=== PATIENT | female | born 1955 | race Caucasian/White ===

== ENCOUNTER 2020-02-23 16:12 | Inpatient (IN) | payer OTHER ==
[~2020-02-23] VITALS: Ht 165.1 cm; Wt 65.8 kg
[2020-02-23 16:21] VITALS: Ht 165.1 cm; Wt 65.8 kg
--- NOTE | 2020-02-23 16:22 | NUR ---
DR DONALDSON AT THE BEDSIDE FOR MSE TO PT
--- NOTE | 2020-02-23 16:25 | NUR ---
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 PER MEDICS
--- NOTE | 2020-02-23 16:25 | NUR ---
PT BIB [facility] FROM HOME S/P WITNESSED "TONIC CLONIC LIKE" SEIZURE BY FAMILY WHO HELPED HER TO THE GROUND. MEDICS REPORTED 2 SEZURES AFTER EMS ARRIVED TO THE HOUSE, 2.5MG VERSED IM GIVEN BY EMS GENERATOR MAN. MEDICS REPORTED ON WAY TO [facility] THAT PT HAD ANOTHER TONIC CLONIC SEIZURE AND 2.5MG VERSED GIVEN IM. PT HAS HISTORY OF SEIZURES AND MEDICA REPORTED HER MEDICATION WAS CHANGED A WEEK AGO, UNKNOWN WHAT THE NAME OF THE MEDICATION. UPON ARRIVAL PT NOTED TWITCHING LIKE SEIZURE ACTICITY, PT UNABLE TO VERBALIZE NEEDS OR FOLLOW COMMANDS, HORIZONTAL NYSTAGMUS NOTED, PT DOES NOT RESPOND TO HER NAME, GCS 1,1,1, LUNGS CTA, RESP E/U, SKIN NOTED INTACT PINK WARM AND DRY. PT ON NONREBREATHER AT 15L GENERATOR MAN. SIEZURE PRECUATIONS IN PLACE, PT GOWNED AND PLACE DON FULL CM, NSR NOTED.
[2020-02-23 16:45] LABS: microscopic required? NO
--- NOTE | 2020-02-23 16:55 | NUR ---
CHAPARRONED PT TO CT ON A MONITOR, VSS, WHILE IN CT PT HAD TONIC CLONIC SEIZURE LIKE ACTIVITY, PT GIVEN 1MG ATIVAN PER DR DONALDSON VERBAL ORDER IVP, PT IMPROVED AND ABLE TO CONTINUE TO CT SCAN.
--- NOTE | 2020-02-23 16:57 | NUR ---
SPOKE TO PT DAUGHTER, SUDHA, ON PT ACCOUNT, , PER DAUGHTER PT " WAS ON DEPAKOTE AND HER MEDICATION WAS CHANGED TO KEPPRA 200MG" PO BID A WEEK AGO. PER DAUGHTER PT WAS TAKING MEDICATION PRESCRIBED.
[2020-02-23 17:07] LABS: CALCIUM 8.5 mg/dL (8.5-10.1); CARBON DIOXIDE 25.9 mmol/L (21-32); CHLORIDE SERUM 108 mmol/L (98-107); CREATININE SERUM 0.7 mg/dL (0.6-1.0); GFR1 > 60 mL/min; GLUCOSE SERUM 111 mg/dL (74-106); POTASSIUM SERUM 4.1 mmol/L (3.5-5.1); SODIUM SERUM 144 mmol/L (136-145)
--- NOTE | 2020-02-23 17:10 | NUR ---
PT IN NOTED WITH CONTINUAL SEIZURE LIKE ACTIVITY, DR DONALDSON AT THE BEDSIDE FOR REEVALUATION. PER VERBAL ORDER GIVE 1MG ATIVAN IVP AND PREPARE TO INTUBATE PT.
[2020-02-23 17:11] LABS: ALBUMIN 3.6 g/dL (3.4-5.0); ALKALINE PHOSPHATASE 46 U/L (46-116); ALT/SGPT 27 U/L (14-59); AST/SGOT 23 U/L (15-37); BILIRUBIN TOTAL 0.2 mg/dL (0.20-1.00); MAGNESIUM 2.1 mg/dL (1.8-2.4); TOTAL PROTEIN, SERUM 6.6 g/dL (6.4-8.2)
[2020-02-23 17:12] LABS: BASOPHIL % 0.5 % (0.2-1.3); PLATELET COUNT 154 x10^3mcL (179-408); RED CELL DISTRIBUTION WIDTH 13.8 % (12.3-17.7)
--- NOTE | 2020-02-23 17:20 | NUR ---
DR DONALDSON, 2 RTS, EMT GINNY, EMT YANIQUE, RN MICK AND MYSELF AT THE BEDSIDE. PT TO BE INTUBATED PER DR DONALDSON VERBAL ORDER, VERSED 4MG IVP ADMINISTERED BY MICK DARNELL PER DR DONALDSON.
--- NOTE | 2020-02-23 17:21 | NUR ---
PER DR DONALDSON VERBAL ORDER ETOMIDATE 10MG GIVEN IVP TO L HAND BY MICK DARNELL
[2020-02-23 17:22] VITALS: BP 141/81; BP 142/79
--- NOTE | 2020-02-23 17:22 | NUR ---
PT INTUBATED BY DR DONALDSON, CONFIRMED WITH COLOR CHANGE TO GOLD, SYMMETRICAL CHEST RISE AND FALL NOTED,
[2020-02-23 17:28] LABS: UA SPECIFIC GRAVITY >=1.030 (1.005-1.035); urine erythrocyte NEGATIVE (NEGATIVE)
--- NOTE | 2020-02-23 17:34 | NUR ---
UIRINARY EDWARDS PLACED BY [facility] DARNELL,
--- NOTE | 2020-02-23 17:35 | NUR ---
PT PLACED IN VENTILATOR, NO SIEZURE ACTIVITY NOTED AT THIS TIME.
--- NOTE | 2020-02-23 17:45 | NUR ---
PROPOFOL IV DRIP INITIATED AT 10MCG/KG/MIN, GOAL TO ACHIEVE RASS OF 4,
--- NOTE | 2020-02-23 17:48 | NUR ---
OG TUBE PLACED BY YOU RN, CONFIRMED BY CONFIRMATION BY[facility] ASCULTATION BY 2 RNS, YOU AND MYSELF XRAY AT THE BEDSIDE,
--- NOTE | 2020-02-23 17:50 | NUR ---
PROPOFOL TITRATED TO 20MCG/MIN/KG, TO ACHIEVE RASS OF 4, PT MOVING LOWER EXTREMITITES.
--- NOTE | 2020-02-23 17:55 | NUR ---
OG AND ET TUBE PLACEMENT CONFIRMED BY DR DONALDSON. PT PLACED ON LOW INTERMITTENT SUCTION AT 80MM HG
--- NOTE | 2020-02-23 17:56 | NUR ---
TRITRATED PROPFOL DRIP TO 40MCG/KG/MIN, PT NOTED MOVING EXTREMITIES, AND MOVING HEAD WHEN POSITIONING FOR IV INSERTION,
--- NOTE | 2020-02-23 18:10 | NUR ---
PROPOFOL TITRATED TO 50MCG/MIN/KG RSS OF 4 ACHIEVED, PT NOTED NO DISTRESS, RESP E/U, SYMMETRICAL CHEST RISE AND FALL NOTED, VSS, PT IN VIEW OF THE NURSE STATION, WILL CONT TO MONITOR.
--- NOTE | 2020-02-23 18:40 | NUR ---
PROPFOL INFUSING TO L EJ AT 50MCG/KG/MIN, KEPPRA INFUSING TO L HAND IV @ 430ML/HR.
--- NOTE | 2020-02-23 18:42 | NUR ---
PT NOTED WITH TWITCHING SEIZURE LIKE ACITIVITY, PT GIVEN 2MG IVP ATIVAN PER DR DONALDSON ORDER, SEE EMAR.
--- NOTE | 2020-02-23 19:20 | NUR ---
REPORT GIVEN TO YOU DARNELL, FOR CONTINUITY OF CARE.
--- NOTE | 2020-02-23 19:30 | NUR ---
PT HOB RAISED TO >30 DEGREES. PROPOFOL DRIP REDUCED TO 40/MCG/KG/MIN D/T NO RESPONSE NOTED WITH AUDITORY OR PHYSICAL STIMULI. NOTED PT RESTRAINED WITH SOFT RETRAINTS ON BILATERAL UPPER EXTREMITIES. +PMSC.
--- NOTE | 2020-02-23 19:55 | NUR ---
SPOKE TO NANCY, PT'S DAUGHTER, GAVE HER AN UPDATE ON HER MOM, INFORMED SHE IS THE POINT OF CONTACT AND WE WILL BE UPDATING HER ONLY. NANCY VERBALIZED UNDERSTANDING.
--- NOTE | 2020-02-23 20:15 | NUR ---
PT TOLERATING PROPOFOL WELL AT 40MCG/KG/MIN. RSS TARGET SCORE OF 4 ACHIEVED. BRISK RESPONSE TO AUDITORY STIMULI
[2020-02-23 21:25] VITALS: BP 121/60
--- NOTE | 2020-02-23 21:58 | NUR ---
PT IS SEDATED AND IN CYNTHIA SOFT WRIST RESTRAINTS, PT ON FULL CM WITH NSR NOTED. PT DOES NOT APPEAR TO BE IN ACUTE DISTRESS AT THIS TIME WILL CONT TO MONITOR.
--- NOTE | 2020-02-23 22:20 | NUR ---
NOTED WITH MILD NONSPECIFIC SEIZURE LIKE MOTIONS FOR APPROX 5MINS. PT MEDICATED WITH PRN ATIVAN PER EMAR.
--- NOTE | 2020-02-23 23:20 | NUR ---
REPORT RECEIVED FROM FERNANDO DARNELL. PT NOTED LAYING ON GURNEY. PT REMAINS INTUBATED. RESP EVEN AND UNLABORED ON VENTILATOR. FULL CM AND [address] WILL CONTINUE TO MONITOR.
--- NOTE | 2020-02-24 00:12 | NUR ---
PT REMAINS INTUBATED AND ON VENTILATOR AT THIS TIME. PT NOTED RESTING ON GURNEY IN NAD. RESP APPEAR EVEN AND UNLABORED ON VENT. FULL CM AND [address] IV RUNNING WITH NO COMPLICATIONS. PT REMAINS IN BILATERAL SOFT WRIST RESTRAINTS FOR SAFETY. BED IN LOWEST POSITION. WILL CONTINUE TO MONITOR.
--- NOTE | 2020-02-24 01:42 | NUR ---
PT REMAINS ON VENT AND IS NOTED TOLERATING WELL, RESP APPEAR EVEN AND UNLABORED. FULL CM AND [address] BED IN LOWEST POSITON. PT REMAINS IN BUE SOFT RESTRAINTS FOR SAFETY. WILL CONTINUE TO MONITOR
--- NOTE | 2020-02-24 03:00 | NUR ---
PTS BP NOTED 100/53 MAP 72, PT RESTING ON GURNEY. PROPOFOL DECREASED TO 35 MCG/KG/MIN. FULL CM AND [address] PT REMAINS INTUBATED. WILL CONTINUE TO MONITOR.
[2020-02-24 03:51] VITALS: BP 115/61
--- NOTE | 2020-02-24 04:23 | NUR ---
PT RESTING ON GURNEY WITH EYES CLOSED. PT REMAINS INTUBATED AND ON VENTILATOR, RESP EVEN AND UNLABORED. FULL CM AND [address] BUE SOFT RESTRAINTS REMAIN IN PLACE. IV RUNNING WITH NO COMPLICATIONS. WILL CONTINUE TO MONITOR.
--- NOTE | 2020-02-24 05:27 | NUR ---
PT NOTED RESTING ON GURNEY WITH EYES CLOSED IN NAD. PT RESP EVEN AND UNLABORED ON VENTILATOR. FULL CM AND [address] BED IN LOWEST POSITION. ABLE TO VISUALIZE PT FROM NURSING STATION. PT REMAINS ON PROPOFOL AT 35 MCG/KG/MIN WITH NO COMPLICATIONS. WILL CONTINUE TO MONITOR.
[2020-02-24 06:03] LABS: BASOPHIL % 0.4 % (0.2-1.3); RED CELL DISTRIBUTION WIDTH 13.9 % (12.3-17.7)
[2020-02-24 06:06] LABS: PLATELET COUNT 79 x10^3mcL (179-408)
--- NOTE | 2020-02-24 06:18 | NUR ---
PT RESTING ON GURNEY WITH EYES CLOSED. PT REMAINS INTUBATED VIA ET TUBE. PT TOLERATING VENTILATOR WELL. PT REMAINS ON FULL CM AND 02 MONITOR. PT REMAINS ON BUE SOFT RESTRAINTS FOR SAFETY. IV RUNNING WITH NO COMPLICATIONS. BED IN LOWEST POSITION. ABLE TO VISUALIZE PT FROM NURSING STATION. WILL CONTINUE TO MONITOR.
[2020-02-24 06:20] LABS: ALKALINE PHOSPHATASE 37 U/L (46-116); ALT/SGPT 21 U/L (14-59); AST/SGOT 25 U/L (15-37); BILIRUBIN TOTAL 0.5 mg/dL (0.20-1.00); CALCIUM 8.1 mg/dL (8.5-10.1); CARBON DIOXIDE 26.3 mmol/L (21-32); CHLORIDE SERUM 105 mmol/L (98-107); CREATININE SERUM 0.4 mg/dL (0.6-1.0); GFR1 > 60 mL/min; GLUCOSE SERUM 98 mg/dL (74-106); MAGNESIUM 1.8 mg/dL (1.8-2.4); POTASSIUM SERUM 3.7 mmol/L (3.5-5.1); SODIUM SERUM 138 mmol/L (136-145)
[2020-02-24 06:22] LABS: ALBUMIN 2.9 g/dL (3.4-5.0); TOTAL PROTEIN, SERUM 5.9 g/dL (6.4-8.2)
--- NOTE | 2020-02-24 07:45 | NUR ---
REPORT GIVEN TO EDUARDO LEW RN. EDUARDO DARNELL TO ASSUME CARE OF PT AT THIS TIME.
[2020-02-24 10:19] VITALS: BP 110/57
--- NOTE | 2020-02-24 14:38 | NUR ---
PT RESTING IN BED WITH RASS -1. PROPOFOL DRIP STOPPED AT 1000 PER MD INSTRUCTIONS WITH PLAN TO EXTUBATE ONCE PATIENT BECOMES MORE AWAKE. PT CURRENTLY ON VENT WITH FIO2 @ 36% SPO2 @ 99%. PT FOLLOWS COMMANDS AND NODS APPROPIATELY. PT IN NAD ON GURNEY. WILL CONTINUE TO MONITOR.
[2020-02-24 15:14] VITALS: BP 126/64
--- NOTE | 2020-02-24 17:00 | NUR ---
PT EXTUBATED AND PLACED ON 2 L/MIN O2 VIA NC WITH SPO2 98% OGT REMOVED. PT ABLE TO FOLLOW COMMANDS, NOD HEAD APPROPRIATELY AND OPEN EYES SPOTANEOUSLY. ABLE TO MOVE EXTREMITIES BUT HAS WEAKENESS X4. NO C/O PAIN. BREATHING UNLABORED AND EVEN WITHOUT COUGH. ALL LUNG SOUNDS CLEAR TO AUSCULTATION. CALL LIGHT WITHIN REACH AND REORIENTED PT TO SURROUNDINGS. INSTRUCTED PT ON HOW TO USE CALL LIGHT. PT INDICATED UNDERSTANDING. RESTRAINTS REMOVED. VSS. WILL CONTINUE TO MONITOR PATIENT.
--- NOTE | 2020-02-24 17:08 | NUR ---
PT EXTUBATED AT 1700. TOELRATING WELL PLACED ON 3L NASAL CANNULA SPO2 97%. RR 17. NO NOTED DISTRESS. PT AWAKE AND ALERT.
--- NOTE | 2020-02-24 17:40 | NUR ---
PT PLACED ON RA WITH SPO2 97%. PT IN NAD. WILL CONTINUE TO MONITOR.
--- NOTE | 2020-02-24 18:33 | NUR ---
PT DESAT TO 88% RA. PLACED ON 2 L/MIN O2 VIA NC WITH CURRENT SPO2 95% AND RR 22. BREATHING UNLABORED AND EVEN. PT IN NAD. WILL CONTINUE TO MONITOR.
--- NOTE | 2020-02-24 19:06 | NUR ---
REPORT GIVE CARIE ADAME. WENDI WILL RESUME CARE OF PATIENT AT THIS TIME.
[2020-02-25 05:52] LABS: BASOPHIL % 0.3 % (0.2-1.3); RED CELL DISTRIBUTION WIDTH 13.8 % (12.3-17.7)
[2020-02-25 05:58] LABS: PLATELET COUNT 125 x10^3mcL (179-408)
[2020-02-25 06:03] LABS: ALKALINE PHOSPHATASE 36 U/L (46-116); ALT/SGPT 21 U/L (14-59); AST/SGOT 18 U/L (15-37); BILIRUBIN TOTAL 0.96 mg/dL (0.20-1.00); CALCIUM 8.4 mg/dL (8.5-10.1); CARBON DIOXIDE 26.2 mmol/L (21-32); CHLORIDE SERUM 104 mmol/L (98-107); CREATININE SERUM 0.4 mg/dL (0.6-1.0); GFR1 > 60 mL/min; GLUCOSE SERUM 82 mg/dL (74-106); MAGNESIUM 1.8 mg/dL (1.8-2.4); POTASSIUM SERUM 3.2 mmol/L (3.5-5.1); SODIUM SERUM 140 mmol/L (136-145); TOTAL PROTEIN, SERUM 6.2 g/dL (6.4-8.2)
[2020-02-25 06:04] LABS: ALBUMIN 2.9 g/dL (3.4-5.0)
--- NOTE | 2020-02-25 07:12 | NUR ---
RECIEVED PT FROM NIGHT NURSE. PT IS LAYING DOWN IN BED WITH HOB UP. PT LOOKS TO BE IN NO ACUTE DISTRESS. RESPIRATIONS EVEN AND UNLABORED ON 2L NC. LUNG SOUNDS CLEAR CYNTHIA. PT SEEMS TO BE CONFUSD AT THIS TIME,. PT ABLE TO FOLLOW SIMPLE COMMANDS BUT UNABLE TO VERBALLY REESPOND APPROPRIATELY. WHEN BEING ASKED QUESTIONS, PT RESPONDS WITH REPEATING THE SAME QUESTIONS BACK. IV SITE TOE LEFT IJ AND HAND ARE PATENT. EDWARDS CATHETER PRESENT DRAINING CLEAR YELLOW URINE. SKIN BREAKDOWN NOTED TO LEFT CHEEK. SIDE RAILS UP X2. WILL CONTINUE TO MONITOR.
--- NOTE | 2020-02-25 07:17 | NUR ---
REPORT GIVEN TO ROBERT DARNELL
--- NOTE | 2020-02-25 07:17 | NUR ---
TITRATED NC TO 1L.
--- NOTE | 2020-02-25 12:49 | NUR ---
CALLED [facility] FOR MRI QUESTIONAIRE.
--- NOTE | 2020-02-25 13:12 | NUR ---
PT TAKEN TO MRI. QUESTIONAIRE COMPLETED BY DAUGHTER VIA TELEPHONE BY ROBERT DARNELL
--- NOTE | 2020-02-25 14:10 | NUR ---
PT RETURNED FROM CT. PT TOLERATED WELL.
--- NOTE | 2020-02-25 16:16 | NUR ---
PT SEEMS TO BE MORE ALERT AT THIS TIME. ASKED PT IF HUNGRY, PT NODDED, EAT PT JELLO AND SOME SOUP, PT ABLE TO SWALLOW WITHOUT DIFFICULTY. PT DRANK ABOUT 1/2 SOUP AND THEN SHAKING HEAD STATES DOES NOT WANT ANY MORE. PT UNABLE TO STATE NAME AND . PT ASKING FOR SON, WILL GET DAUGHTER ON THE PHONE.
--- NOTE | 2020-02-25 16:23 | NUR ---
PT NOT SPEAKING WHEN SPEAKING WITH DAUGHTER BUT IS REACHING ARMS OUT IN FRONT OF HER.
--- NOTE | 2020-02-25 16:40 | NUR ---
PT SAYING "MALI" OFFERED PT BEDPAN, PT NODDED. PLACED PT ON BEDPAN
--- NOTE | 2020-02-25 16:50 | NUR ---
PT FINISHED ON BEDPAN. PT HAD SMALL SOFT BROWN BM, CLEANED UP PT WITH WIPES. PT LOOKS TO BE IN NO ACUTE DISTRESS AT THIS TIME. WILL CONTINUE TO MONITOR.
--- NOTE | 2020-02-25 17:34 | NUR ---
PROVIDED PT WITH DINNER TRAY. PT NODDING YES WHEN BEING ASKED IF HUNGRY. ASSISTED PT WITH DINNER, PT DRANK 100% OF DINNER TRAY WITH ASSISTANCE. PT PUT UP HANDS WHEN NO LONGER WANTING TO EAT. MADE PT COMFORTABLE IN BED. WILL CONTINUE TO MONITOR.
[2020-02-25] MEDS ORDERED: PANTOPRAZOLE SO40 M1 PO (18:44)
[2020-02-25] MEDS ORDERED: DEPAKOTE ER250 M1 PO (18:44)
[2020-02-25] MEDS ORDERED: KEPPRA500 MG PO (18:44)
[2020-02-25] MEDS ORDERED: ASPIRIN ADULT L81 M5 PO (18:44)
[2020-02-25] MEDS ORDERED: GOOD SENSE PAI500 MG PO (18:45)
[2020-02-25] MEDS ORDERED: ATORVASTATIN CA40 M1 PO (18:45)
[2020-02-25] MEDS ORDERED: MASON NATURAL1000 IU PO (18:45)
[2020-02-25] MEDS ORDERED: TRAZODONE50 M1 PO (18:46)
[2020-02-25] MEDS ORDERED: REQUIP0.25 M1 PO (18:46)
--- NOTE | 2020-02-25 19:14 | NUR ---
ENDORSED TO AKOSUA RNMAYA
--- NOTE | 2020-02-25 21:30 | NUR ---
PT IS YELLING FOR HER DAUGHTER BARBY. PT WAS INFORMED THATHER DAUGHTER IS NOT HERE AND THAT SHE WAS IN THE HOSPITAL. PT CONTINUED TO YELL FOR NACY. PT ALSO STARTED TO BANG THE SIDERAIL WITH HAND WHILE YELLING. PT WAS GIVEN ATIVAN FOR AGITATION PER MD ORDER SEE EMAR. VITAL SIGNS STABLE. RESPIRATIONS EVEN AND UNLABORED.
--- NOTE | 2020-02-25 22:27 | NUR ---
PT RESTING COMFORTABLY WITH EYES CLOSED. VITAL SIGNS STABLE. RESPIRATIONS EVEN AND UNLABORED. NO ACUTE DISTRESS NOTED.
--- NOTE | 2020-02-26 00:07 | NUR ---
PT YELLING FOR HER DAUGHTER BARBY AGAIN. TRY TO REORINET PATIENT BUT PATIENT CONTIUED TO YELL AND HIT SIDE RAIL CALLING FOR BARBY. PT MEDICATED WITH ATIVAN PER MD ORDER SEE EMAR. VITAL SIGNS STABLE. RESPIRATIONS EVEN AND UNLABORED.
--- NOTE | 2020-02-26 03:00 | NUR ---
PT PULLED OUT HER IV AND HAD A EPISODE OF INCONTINENCE OF STOOL. PT WAS PLACED ON A BEDSIDE CAMOUDE DUE TO STILL HAVING A BM WHILE TRYING TO CLEAN HER UP. PT PLACE BACK IN BED WITH A CLEAN SHEETS AND CALL LIGHT IN REACH OF PATIENT.
--- NOTE | 2020-02-26 03:21 | NUR ---
PT MEDICATED FOR AGITATION PER MD ORDER SEE EMAR.
--- NOTE | 2020-02-26 05:12 | NUR ---
PT RESTING COMFORTABLY. WITH EYES CLOSED. VITAL SIGNS STABLE. RESPIRATIONS EVEN AND UNLABORED. NO ACUTE DISTRESS NOTED.
--- NOTE | 2020-02-26 07:02 | NUR ---
REPORT RECEIVED FROM MAYA DARNELL, I WILL RESUME CARE OF PT AT THIS TIME
--- NOTE | 2020-02-26 07:49 | NUR ---
PT IS A&OX2, GERMAN SPEAKING, SLOW TO RESPOND AND FOLLOWS COMMANDS. PT IS ON FULL CM WITH NSR NOTED, LUNGS CTA, RESPS E/U. PT IS ON RA WITH NS INFUSING AT 80ML/HR TO LAC. PT DOES NOT APPEAR TO BE IN ACUTE DISTRESS AT THIS TIME, WILL CONT TO MONITOR.
[2020-02-26 08:16] LABS: BASOPHIL % 0.6 % (0.2-1.3); PLATELET COUNT 131 x10^3mcL (179-408); RED CELL DISTRIBUTION WIDTH 13.5 % (12.3-17.7)
[2020-02-26 08:43] LABS: ALKALINE PHOSPHATASE 40 U/L (46-116); ALT/SGPT 20 U/L (14-59); AST/SGOT 19 U/L (15-37); BILIRUBIN TOTAL 0.98 mg/dL (0.20-1.00); CALCIUM 8.9 mg/dL (8.5-10.1); CARBON DIOXIDE 25.9 mmol/L (21-32); CHLORIDE SERUM 106 mmol/L (98-107); CREATININE SERUM 0.4 mg/dL (0.6-1.0); GFR1 > 60 mL/min; GLUCOSE SERUM 80 mg/dL (74-106); MAGNESIUM 1.9 mg/dL (1.8-2.4); POTASSIUM SERUM 3.1 mmol/L (3.5-5.1); SODIUM SERUM 142 mmol/L (136-145); TOTAL PROTEIN, SERUM 6.4 g/dL (6.4-8.2)
--- NOTE | 2020-02-26 09:39 | NUR ---
PULMONLIGIST AT BEDSIDE FOR EVAL. PT MOVED DOWN TO TELE HOLD AND REQUST FOR NEURO EVAL PER PULMONLIGIST
[2020-02-26 09:40] LABS: ALBUMIN 2.9 g/dL (3.4-5.0)
--- NOTE | 2020-02-26 09:45 | NUR ---
PT FED BREAKFAST TRAY BY MYSELF DUE TO PT HAVING CONFUSION. PT ATE 80% OF BREAKFAST TRAY AND DID NOT HAVE ANY DIFFICULTLY SWALLOWING LIQUIDS.
--- NOTE | 2020-02-26 10:33 | NUR ---
DR VILLANUEVA AT BEDSIDE FOR EVAL
--- NOTE | 2020-02-26 10:37 | NUR ---
PT REQUESTED PHONE TO SPEAK WITH DAUGHTER BARBY AT [phone]. PT WAS RPOVIDED WIRELESS PHONE TO SPEAK WITH DAUGHTER.
--- NOTE | 2020-02-26 11:00 | NUR ---
CALLED TO GIVE REPORT TO OPS, NO ANSWER. WILL CALL BACK.
--- NOTE | 2020-02-26 11:05 | NUR ---
REPORT GIVEN TO JORGE A DARNELL IN OPS [id number] TO ASSUME PT CARE.
[2020-02-26 11:30] VITALS: BP 139/66
--- NOTE | 2020-02-26 12:53 | NUR ---
PATIENT ADMITTED FROM ER. SEIZURE PRECAUTIONS IN PLACE. EDWARDS DRAINING DARK ANABELA URINE. TOLERATING CLEAR LIQS. VSS. WILL CONTINUE TO MONITOR. ELLIE REILLY RN
--- NOTE | 2020-02-26 23:03 | NUR ---
PT ALERT WITH CONFUSION, REMAINS IN STABLE CONDITION, TOLERATES MEDS WELL, HAS NO C/O PAIN, NO SIGNS OF DISTRESS NOTED. PT CURRENTLY SITTING AT NURSES STATION IN WHEELCHAIR D/T CONFUSION, PT GETS OUT OF BED UNASSISTED WHILE GAIT IS UNSTEADY, PT IS CURRENTLY BEING OBSERVED BY THIS NURSE, WILL CONTINUE TO MONITOR.
--- NOTE | 2020-02-27 06:03 | NUR ---
PT WAS RESTLESS AND ANXIOUS DURING THE NIGHT, MEDICATED WITH ATIVAN 1MG FOR ANXIETY. PT IS CALM AND SLEPT WELL. ASSISTED PT TO BATHROOM, NOTED URINE IN EDWARDS IS DARK ANABELA COLOR WITH A SLIGHT ODOR WITH OUTPUT 550. PT RESTING IN BED WITH NAD NOTED, BED ALARM IN PLACE.
--- NOTE | 2020-02-27 06:58 | NUR ---
Pt was found on the floor by another nurse. AM nurse stated that the pt slid out of her wheelchair and landed on her butt on the floor. AM nurse states that the pt did not hit her head. Pt is awake and crying. Pt presents to be confused. Pt's family called to console the pt and to translate for the pt. Provider will be notified.
--- NOTE | 2020-02-27 07:30 | NUR ---
Dr. Thomas's office called to page for inforamtion about the fall. Waiting lead front end developer back.
--- NOTE | 2020-02-27 08:11 | NUR ---
Dr. Thomas called back and the following orders have been placed per providers orders: x-ray Bilateral hip; heat CT w/out contrast; soft restraints PRN. Orders placed.
[2020-02-27 08:25] LABS: BASOPHIL % 0.8 % (0.2-1.3); PLATELET COUNT 172 x10^3mcL (179-408); RED CELL DISTRIBUTION WIDTH 13.3 % (12.3-17.7)
--- NOTE | 2020-02-27 08:25 | NUR ---
Pt's family notified of fall and provider's orders. Family does not wish for the pt to be restrained and d/t pt's agitation, the director and have requested family to come in and sit with the pt as a 1:1. Pt's family verbalized understanding and will be here in 10 mins.
--- NOTE | 2020-02-27 08:45 | NUR ---
Pt's family has arrived to the facility. Pt has calmed down with her daughter's presence. Pt is now resting peacfully, daughter at the bedside.
[2020-02-27 08:49] LABS: ALKALINE PHOSPHATASE 45 U/L (46-116); ALT/SGPT 23 U/L (14-59); AST/SGOT 22 U/L (15-37); BILIRUBIN TOTAL 0.63 mg/dL (0.20-1.00); CALCIUM 8.7 mg/dL (8.5-10.1); CHLORIDE SERUM 106 mmol/L (98-107); CREATININE SERUM 0.5 mg/dL (0.6-1.0); GFR1 > 60 mL/min; GLUCOSE SERUM 84 mg/dL (74-106); MAGNESIUM 1.7 mg/dL (1.8-2.4); SODIUM SERUM 142 mmol/L (136-145); TOTAL PROTEIN, SERUM 6.6 g/dL (6.4-8.2)
--- NOTE | 2020-02-27 09:00 | NUR ---
Pt is AOx2. Pt has calmed down as her daughter is at the bedside. Pt's VS are stable and pt reports a 10/10 pain in her hip. Pt's dahl catheter is draining and unkinked. Pt is in stable condition, waiting on Tele neuro consult. Pt's daughter is at the bedside to translate. Safety measures will be maintained. Call light is within reach of family. Pt's needs and concerns will be addressed as they arise. Will continue to monitor.
[2020-02-27 09:21] VITALS: BP 122/67
[2020-02-27 12:00] VITALS: BP 151/78
[2020-02-27 19:30] VITALS: BP 101/57
--- NOTE | 2020-02-27 19:38 | NUR ---
PT LYING IN BED RESTING. DAUGHTER AT THE BEDSIDE. CARDIAC MONITORING IN USE NSR NOTED. PULSES PRESENT. EDEMA NOTED. LUNG SOUNDS CLEAR. BOWEL SOUNDS PRESENT. VOIDS PER EDWARDS. DARK COLORED URINE NOTED. GENERALIZED WEAKNESS NOTED. SKIN INTACT. DENIES PAIN. IV SITE CDI; NO SWELLING/REDNESS NOTED. SAFETY MAINTAINED. CALL LIGHT WITHIN REACH. BED IN LOWEST POSITION. BEDSIDE TABLE NEAR. WILL CONTINUE TO MONITOR.
[2020-02-28 00:21] VITALS: BP 107/60
[2020-02-28 04:27] VITALS: BP 128/72
--- NOTE | 2020-02-28 06:29 | NUR ---
PT RESTED COMFORTABLY THROUGOUT THE NIGHT. NO SIGNS OF DISTRESS. SAFETY MAINTAINED. DENIES PAIN. FAMILY AT BEDSIDE. HERRERARA IV HELD FOR PM MEDS PER FAMILY NEUROLOGIST. CALL LIGHT WITHIN REACH. BESIDE TABLE NEAR. BED IN LOWEST POSITION. WILL CONTINUE TO MONITOR.
--- NOTE | 2020-02-28 07:00 | NUR ---
0700 Shift report done at bedside, pt is sleeping, daughter is at the bedside. Pt's VS are stable except for her temperture is elveated at 100.5f. 0705 Provider notifed. Pt has a pain rating of 6/10 complaint to her lower back. Pt has expiratory wheezing noted in her posterior lung sounds. Anterior lung sounds are clear. IS will be given to pt. Pt denies chest pain as well as lower bilateral calf pain. Abdomen is soft and bowel sounds are active in all quadrants. Pt is more alert then yesterday, she knows that she is in the hospital as well as her name and her daughter's name. Pt is calm and resting peacfully. Safety measures will be maintained; side rails us, seziure precautions in place, call light within reach of pt and family. Will continue to monitor and assess the pt as needed.
[2020-02-28 07:15] VITALS: BP 134/61
[2020-02-28 08:06] LABS: BASOPHIL % 0.7 % (0.2-1.3); PLATELET COUNT 154 x10^3mcL (179-408); RED CELL DISTRIBUTION WIDTH 13.4 % (12.3-17.7)
[2020-02-28 08:21] LABS: ALKALINE PHOSPHATASE 37 U/L (46-116); ALT/SGPT 19 U/L (14-59); AST/SGOT 21 U/L (15-37); BILIRUBIN TOTAL 0.3 mg/dL (0.20-1.00); CARBON DIOXIDE 28.1 mmol/L (21-32); CHLORIDE SERUM 110 mmol/L (98-107); CREATININE SERUM 0.4 mg/dL (0.6-1.0); GFR1 > 60 mL/min; GLUCOSE SERUM 86 mg/dL (74-106); MAGNESIUM 1.5 mg/dL (1.8-2.4); SODIUM SERUM 146 mmol/L (136-145)
[2020-02-28 08:46] LABS: ALBUMIN 2.3 g/dL (3.4-5.0); TOTAL PROTEIN, SERUM 5.2 g/dL (6.4-8.2)
[2020-02-28 12:00] VITALS: BP 140/74
--- NOTE | 2020-02-28 13:00 | NUR ---
Full bed bath given, linens changed. Pt was sitting up in a chair to eat lunch. Pt states that she is feeling better and doesn't remember what happened that brought her to the hospital. Pt and her daughter educated on the use of IS. Pt achieved 1000mL X5. Pt and daughter verbalized understanding of IS use and importance.
[2020-02-28 19:30] VITALS: BP 129/70
--- NOTE | 2020-02-28 20:10 | NUR ---
PT AAOX3 LYING IN BED. DAUGHTER BY THE BESIDE. PT MORE ALERT THAN PREVIOUS DAY AND ABLE TO ANSWER QUESTIONS WITHOUT CONFUSION. NO C/O PAIN. C/O NAUSEA THAT RESOLVED ON ITS ON. CARDIAC MONITORING IN USE3. S1S2 NOTED. PULSES PRESENT. NO EDEMA NOTED. LUNG SOUNDS CLEAR. BOWEL SOUNDS ACTIVE. URINE ANABELA COLOR DRAINING IN EDWARDS. GENERALIZED EDEMA NOTED. SKIN INTACT. IV SITE CDI; INFUSING VANCOMYCIN. SAFETY MAINTAINED. CALL SHAFFER WITHIN REACH. DAUGHTER REMAINS AT THE BEDSIDE. WILL CONTINUE TO MONITOR.
[2020-02-29 00:59] VITALS: BP 132/78
[2020-02-29 06:05] VITALS: BP 128/76
[2020-02-29 07:00] VITALS: BP 142/72
--- NOTE | 2020-02-29 07:00 | NUR ---
Shift report done at bedside. Pt is AOX4, she does not remember the seziure, she rembers events before and after the seziure. Pt's VSS are stable, no complaints of chest pain. Pt's lungs sounds are clear throughout all lobes posteriorly and anteiorly. Abdomen is soft, no complaints of pain, bowel sounds active in all quadrants. Pt denies any pain or tenderness in her calfs. Seziure precautions are in place. Saftey measures will be maintained throughout the shift. Call light is within reach of pt. Pt's needs and concerns will be met as they arise. Will continue to monitor.
--- NOTE | 2020-02-29 07:03 | NUR ---
PT AAOX4. C/O OF HEADACHE. RATES 5/10. TOLERATED IV ANTIBIOTICS AND PO MEDS WELL. NON-PRODUCTIVE COUGH NOTED. EDWARDS DRAINING CLEAR YELLOW URINE. NO BM NOTED THROUGHOUT THE NIGHT. FAMILY AT BEDSIDE. SAFETY MAINTAINED. BED IN LOWEST POSITION. CALL LIGHT WITHIN REACH. WILL CONTINUE TO MONITOR.
[2020-02-29 07:20] LABS: ALKALINE PHOSPHATASE 33 U/L (46-116); ALT/SGPT 22 U/L (14-59); AST/SGOT 13 U/L (15-37); BILIRUBIN TOTAL 0.22 mg/dL (0.20-1.00); CALCIUM 8.3 mg/dL (8.5-10.1); CARBON DIOXIDE 31.4 mmol/L (21-32); CHLORIDE SERUM 110 mmol/L (98-107); CREATININE SERUM 0.4 mg/dL (0.6-1.0); GFR1 > 60 mL/min; GLUCOSE SERUM 85 mg/dL (74-106); POTASSIUM SERUM 3.6 mmol/L (3.5-5.1); SODIUM SERUM 145 mmol/L (136-145)
[2020-02-29 07:22] LABS: ALBUMIN 2.3 g/dL (3.4-5.0); TOTAL PROTEIN, SERUM 5.4 g/dL (6.4-8.2)
[2020-02-29 12:00] VITALS: BP 142/75
--- NOTE | 2020-02-29 12:32 | NUR ---
Call Dr. Thomas's answering service in order to inform him of the pt's temperature of 101.1f. Waiting for call back.
--- NOTE | 2020-02-29 12:55 | NUR ---
Dr. Thomas called back and would like a lumbar puncture done at the bedside. I have called smokehouse operator, Stephanie to see who needs to be contacted for this. I have called radiology and Dr. Browne is electronics department manager this weekend, his phone number is [phone]. I have paged Dr. Thomas to return my call. Waiting electronics department manager back.
--- NOTE | 2020-02-29 13:50 | NUR ---
Lab was called to come and draw the Troponin; RT called to come do an EKG.
[2020-02-29 16:00] VITALS: BP 147/83
--- NOTE | 2020-02-29 19:00 | NUR ---
Shift report done at bedside with PM nurse. Pt is awake, no distress noted. No complaints voiced at this time. Safety has been maintained and needs have been addressed.
[2020-02-29 19:27] VITALS: BP 127/65
--- NOTE | 2020-02-29 21:22 | NUR ---
PT AAOX4 LYING IN BED TALKING TO FAMILY AT THE BEDSIDE. PT DENIES PAIN. VITAL SIGNS STABLE. DRAWING CHECKER IN USE. NSR NOTED. PULSES PRESENTED. NO EDEMA NOTED. LUNG SOUNDS CLEAR. BOWEL SOUNDS PRESENT. VOIDS PER EDWARDS CLEAR YELLOW URINE. GENERALIZED WEAKNESS NOTED; YET IMPROVED. SKIN INTACT. RIGHT FA IV SITE CDI; SALINE LOCKED. SAFETY MAINTAINED. BED IN LOWEST POSITION CALL SHAFFER WITHIN REACH. WILL CONTINUE TO MONITOR.
[2020-03-01] VITALS: BP 125/63
[2020-03-01 06:00] VITALS: BP 139/74
--- NOTE | 2020-03-01 06:19 | NUR ---
PT RESTED WELL THROUGHOUT THE NIGHT. C/O OF HEADACHE X 1. RESOLVED WITH PO TYLENOL. VOIDED PER EDWARDS CLEAR YELLOW URINE. SAFETY MAINTAINED. FAMILY REMAINED AT BEDSIDE. TOLERATED IV ANTIBIOTICS. VANC TROUGH 15.4 2:00AM DOSE HELD. VANC TROUGH SCHEDULED FOR 9:30 BEFORE 10 A.M. DOSE. WILL CONTINUE TO MONITOR.
[2020-03-01 07:00] VITALS: BP 134/72
--- NOTE | 2020-03-01 07:03 | NUR ---
Shift report done at bedside. Pt is asleep, no distress noted. VS are stable. Pt's daughter at bedside. Safety measures are in place, side rails up, seziure pads in place, call light within reach and non-skid socks on the pt. Will continue to monitor as needed.
[2020-03-01 11:57] LABS: ALT/SGPT 21 U/L (14-59); AST/SGOT 14 U/L (15-37); BILIRUBIN TOTAL 0.23 mg/dL (0.20-1.00); CALCIUM 8.2 mg/dL (8.5-10.1); CARBON DIOXIDE 33.7 mmol/L (21-32); CHLORIDE SERUM 106 mmol/L (98-107); CREATININE SERUM 0.5 mg/dL (0.6-1.0); GFR1 > 60 mL/min; GLUCOSE SERUM 112 mg/dL (74-106); SODIUM SERUM 146 mmol/L (136-145)
[2020-03-01 11:59] LABS: ALBUMIN 2.6 g/dL (3.4-5.0); TOTAL PROTEIN, SERUM 5.7 g/dL (6.4-8.2)
[2020-03-01 12:00] VITALS: BP 139/74
[2020-03-01 12:26] LABS: ALKALINE PHOSPHATASE 37 U/L (46-116)
[2020-03-01 16:00] VITALS: BP 115/64
[2020-03-01 16:57] LABS: BASOPHIL % 1.2 % (0.2-1.3); PLATELET COUNT 179 x10^3mcL (179-408); RED CELL DISTRIBUTION WIDTH 13.5 % (12.3-17.7)
--- NOTE | 2020-03-01 19:00 | NUR ---
Pt is awake and AOX4. VS stable pt complains of headache. New IV access was started in the right forearm with a 20g. Pt has ate 50% of her breakfast, 75% lunch and 75% dinner. Pt's urine output was 1750, urine is clear and light yellow. Pt is resting well. Daughter at the bedside. Pt had a bed bath today with linens changed. Shift report done at bedside with PM nurse. Saftey has been maintained and needs have been addressed throughout the AM shift.
--- NOTE | 2020-03-01 20:42 | NUR ---
PT ALERT AND ORIENTED X3, ABLE TO MAKE NEEDS KNOWN, HAS NO C/O PAIN AT THIS TIME TOLERATES MEDS WELL, DAUGHTER AT BEDSIDE, PT RESTING COMFORTABLY AT THIS TIME. EDWARDS INTACT DRAINING STRAW COLORED UNRINE, IV INTACT AND PATENT, WILL CONTINUE TO OBSERVE.
--- NOTE | 2020-03-02 05:26 | NUR ---
PT ALERT, NO C/O PAIN NOTED, TOLERATES MEDS WELL, DAUGHTER AT BESIDES, TOLERATES MEDS WELL, WILL CONTINUE TO OBSERVE.
--- NOTE | 2020-03-02 06:58 | NUR ---
Shift report done at bedside, Pt is asleep, no distress noted. VS are stable. Siderails up, seziure pads in place, call light within reach of the pt. Daugther at the bedside. Will continue to monitor and assess as needed.
[2020-03-02 07:10] VITALS: BP 145/69
--- NOTE | 2020-03-02 09:04 | NUR ---
RECEIVED ORDER FOR LP WHICH WAS DISCUSSED WITH RADIOLOGISTS SINCE MONDAY. DR HICKEY CAME IN YESTERDAY (MONDAY) AND SPOKE WITH DR VILLANUEVA REGARDING THE LP. HE WAS TOLD THAT THE PATIENT WAS NOT SPIKING FEVERS ANY MORE AND THAT DR WOLFE WOULD REASSESS NEED FOR LP TODAY. DR. VELASQUEZ, TODAY'S RADIOLOGIST, SPOKE WITH DR Pelayo WHO SAID HE WAS ALSO TOLD BY DR VILLANUEVA THAT HE WOULD REASSESS NEED FOR LP TODAY. PATIENT IS NOT MORBIDLY OBESE AND NO ATTEMPT HAS BEEN MADE BY THE PRIMARY CARE TEAM. I OBTAINED DR VILLANUEVA'S PHONE NUMBER FROM PATIENT'S NURSE JORGE A AND RELAYED IT TO DR VELASQUEZ. HIGHEST TEMP IN 48 HRS WAS 99.6 AT NOON YESTERDAY. AFEBRILE THIS AM.
[2020-03-02 12:30] VITALS: BP 145/49
--- NOTE | 2020-03-02 13:07 | NUR ---
SPOKE WITH PATIENT'S NURSE JORGE A REGARDING INDICATIONS FOR IR FLUORO LP TO BE DONE, WHICH ARE OBESITY, FAILED BEDSIED ATTEMTP, POSTOP STATUS OR SEVERE ANXIETY. JORGE A STATES PATIENT HAS SEVERE ANXIETY. NOTIFIED DR VELASQUEZ.
--- NOTE | 2020-03-02 13:55 | NUR ---
SPOKE WITH PATIENT'S NURSE JORGE A REGARDING LP CONSENT, PER JORGE A PATIENT MAY SELF-CONSENT. ALSO ATTEMPTED TO REACH DR VILLANUEVA FOR ORDERS FOR THE CSF. UNABLE TO REACH DR VILLANUEVA BY PHONE.
--- NOTE | 2020-03-02 13:57 | NUR ---
SPOKE WITH DR VILLANUEVA REGARDING NO ORDERS YET FOR LABS ON CSF. STATES WILL CONFER WITH ATTENDING TO ORDER THOSE.
[2020-03-02 16:00] VITALS: BP 143/74
--- NOTE | 2020-03-02 19:00 | NUR ---
Shift report done at bedside with PM nurse. Pt is sleeping, daughter at the bedside. Pt has been AOX4 all day today. Pt has complained about a headache and her back hurting. Pt's VS have been stable, no complaints of chest pain. Pt's dahl had 2750mL output during AM shift. I&O charting is not accurate at this time. Pt has had a bed bath; linens have been changed. Pt sat up in a chair to eat lunch and dinner. Pt consumed 50% breakfast, 75%lunch and 100% dinner. Pt has been waiting for a lumbar puncture. Family is at bedside. Safety has been mainted, seziure pads in place, siderails up, non-wood carver hand socks on, call light within reach. Pt's needs have been monitored and addressed during the shift.
[2020-03-02 20:17] VITALS: BP 111/66
--- NOTE | 2020-03-02 20:22 | NUR ---
RN RECIEVED SHIFT REPORT FROM OFF GOING RN, PT AWAKE AND ALERT AND ORIENTED WITH NAD OBSERVED, RESP EVEN AN DUNLABORED. PT DENIES PAIN AT THIS TIME, IV C/D/I. BED IN LOW POSITION CALL SHAFFER IN REACH.
[2020-03-03 04:09] VITALS: BP 111/66
--- NOTE | 2020-03-03 05:25 | NUR ---
PT RESTING WELL WITH UNEVENTFUL NIGHT DAUGHTER AT BEDSIDE. NAD OBSERVED TOLERATED MEDS WELL. NO S/S OF ADVERSE REACTIONS OBSERVED. CALL SHFAFER IN REACH.
[2020-03-03 07:00] VITALS: BP 119/96
--- NOTE | 2020-03-03 07:00 | NUR ---
Shift report done at bedside. Pt is sleepy and requiring 1L of O2 at the present time. Pt's VS are stable. IV infiltrated; +1 edema and erythemia around the site, no phlebitis noted. IV removed, cathertip intact, bandage applied. Pt tolerated removal well.
--- NOTE | 2020-03-03 07:37 | NUR ---
Radiology called this AM to tell me that the Radiologist is insisting that a provider needs to attempt the Lumbar puncture at bedside. I have informed the radiology services manager that Dr. Thomas and Dr. Burks have both stated that they are not certified to perform the LP. The Entry Level Project Coordinator stated "the Dr's went to med school, they should know how to do it and they should at least attempt the procedure." Entry Level Project Coordinator was informed that both providers have stated that they are not certified in LP's. Entry Level Project Coordinator stated, "well the ER doctor's can do it, maybe get one of them to come down and try." I informed the tech that I tried to call ER over the weekend and the ER Dr's will not come to outpatient to do the procedure. The tech stated, "the radiologist is really busy and can't get to her so another provider needs to make an attempt."
[2020-03-03 10:19] LABS: BASOPHIL % 0.8 % (0.2-1.3); PLATELET COUNT 198 x10^3mcL (179-408); RED CELL DISTRIBUTION WIDTH 13.5 % (12.3-17.7)
[2020-03-03 11:18] LABS: ALBUMIN 2.6 g/dL (3.4-5.0); ALKALINE PHOSPHATASE 39 U/L (46-116); ALT/SGPT 22 U/L (14-59); AST/SGOT 23 U/L (15-37); BILIRUBIN TOTAL 0.23 mg/dL (0.20-1.00); CALCIUM 8.5 mg/dL (8.5-10.1); CARBON DIOXIDE 29.3 mmol/L (21-32); CHLORIDE SERUM 105 mmol/L (98-107); CREATININE SERUM 0.5 mg/dL (0.6-1.0); GFR1 > 60 mL/min; GLUCOSE SERUM 120 mg/dL (74-106); SODIUM SERUM 143 mmol/L (136-145); TOTAL PROTEIN, SERUM 5.9 g/dL (6.4-8.2)
[2020-03-03 12:00] VITALS: BP 130/60
[2020-03-03 13:46] LABS: APPEARANCE CSF CLEAR; COLOR CSF COLORLESS; VOLUME CSF 12.5 mL
[2020-03-03 14:37] LABS: RBC CSF 145 /cumm (0); WBC CSF 0 /cumm (0-5)
[2020-03-03 14:38] LABS: LYMPHOCYTE CSF 0 % (40-80); MONOCYTE CSF 0 %
[2020-03-03 15:15] LABS: TOTAL PROTEIN CSF 44.7 mg/dL (15-45)
--- NOTE | 2020-03-03 15:28 | NUR ---
1. Continue with CCHO mechanical soft diet 2. Recommend Glucerna QD to provide additional 220kcal and 10g protein.
--- NOTE | 2020-03-03 15:28 | NUR ---
Initial Nutrition Assessment: [id number]/ JUAN WARNER 64F HR Nursing trigger: Wt loss > 10 lbs, potential risk diagnosis, poor PO > 3 days, unable to ingest food for age, TF Dx: status epilepticus PMHx: none noted PSHx: none noted Labs: (03/01) WBC 3.3L, HCT 33L, Na 146H, BUN 5L, Cr 0.5L, BG 112H, Ca 8.2L, AST 14L, Alk Ph 37L, albumin 2.6L Meds: Zovirax, Morphine, Zofran, Ativan, Tylenol, Depakote Diet: CCHO mechanical soft PO intake since admission: none recorded; good per RN Ht: 165.1cm/65in Wt: 65.771kg/144.7lbs BMI: 24.1kg/m2 Bed scale: not able to assess IBW: 56.82kg/125lbs %IBW: 115.8% UBW: not able to assess Age: 64 Food Allergies: not able to assess; none noted Edema: none noted Last BM: 03/01 Skin: skin intact Rodney: 18 Per H and P (02/23), pt is a 63-year-old female with a history of seizures brought by EMS s/p witnessed seizure x 3 prior to arrival. Per EMS, patient had seizure medications changed 1 week ago. Unknown if changed dosage or changed medication. Patient is otherwise postictal on arrival and further history cannot be obtained. The remainder of history, past medical/surgical/family/social history, and review of systems are limited secondary to the patient's clinical condition. Pt was admitted with dx: status epilepticus RD Note (03/03/2020) No nutrition flow sheet recorded, but pt had adequate appetited noted consistently in RN shift reassessments. Spoke with pt's RN in outpatient med surg via phone. Per pt' RN, pt had good appetite and was able to tolerate diet with no GI distress or chewing/swallowing difficulty. Problem with: N/V/D/C: none per RN Problems with: Chewing: Swallowing: none per RN Current appetite: good per RN Recent wt change: not able to assess %wt change: not able to assess Vitamin/Supplement use: not able to assess; none noted in H and P Special diet at home: not able to assess; none noted in admission system assessment Physical activity: not able to assess Nutrition education given (specify specific nutrition education and handout given): not given at this time Food-drug interactions? Education given? n/a Estimated Nutritional Needs Based on ideal body weight body weight (57kg) Energy: 6052-1138 kcal/day (30-35 kcal/kg for fever) Protein: 57-68 g/day (1-1.2 g/kg for fever) Fluid: 0803-8033 mL/day (1 mL/kcal) Nutrition Diagnosis: 1. Increased energy and protein needs r/t hypermetabolic state a/e/b pt is noted to have fever. Intervention 1. [facility] with [facility] mechanical soft diet 2. Recommend Glucerna QD to provide additional 220kcal and 10g protein. Monitor/Evaluate Goal: PO intake at least 75% of estimated needs Monitor: PO intake, Labs, GI function F/U in 3-5 days as moderate risk 03/06-
--- NOTE | 2020-03-03 19:15 | NUR ---
Pt was AOX4 during AM shift, Daughter at the bedside. Pt had complaints of 7/10 pain in her stomach and head, provider notified pt medicated per orders. Pt had her LP done today. Infectious disease Dr came and assessed the pt at 1830. Pt had two IV's inserted because one went bad. Pt rested most of the day VS stable and no complaints of chest pain. Safety was maintained, side rails up, seziure pads in place, call light with in reach of pt. Pt's dahl is draining well, urine is light yellow and non cloudy. Catheter is WNL and unkinked. Pt ate 50% of breakfast, 75% lunch and 100% of dinner. Shift report done at bedside with PM nurse.
--- NOTE | 2020-03-03 19:30 | NUR ---
RN RECEIVED SHIFT REPORT PT ALERT AND ORINETED WITH NAD OBSERVED, RESP EVEN AND UNLABORED. PT DAUGHTER AT BEDSIDE. NO COMPLAINTS VERBALIZED AT THIS TIME. SAFETY PRECAUTIONS IN PLACE. BED IN LOW POSITION CALL SHAFFER IN REACH.
[2020-03-03 20:43] VITALS: BP 114/69
[2020-03-04 03:59] VITALS: BP 151/83
--- NOTE | 2020-03-04 04:47 | NUR ---
PT HAD UNEVENTFUL NIGHT ROMEL IV ABT WELL WITH NO ADVERSE REACTIONS, NO OBERVED OR REPORTED SEIZURES. NO C/O PAIN VERBALIZED. DAUGHTER REMAINED AT BEDSIDE. PT IV C/D/I WITH NO S/S OF COMPLICATIONS NO FEVERS THROUGHOUT NIGHT. SAFETY PRECAUTIONS IN PLACE. CALL SHAFFER IN REACH.
[2020-03-04 07:00] VITALS: BP 110/59
--- NOTE | 2020-03-04 07:07 | NUR ---
Pt is asleep, no distress noted. Daughter at the bedside. Pt's VS are stable. Gonzales is unkinked and draining well. VS are stable. Safety will be maintained with side rails up, seziure pads in place, call light with in reach of pt. Will continue to monitor and assess as needed.
[2020-03-04 08:13] LABS: ALKALINE PHOSPHATASE 37 U/L (46-116); ALT/SGPT 22 U/L (14-59); AST/SGOT 17 U/L (15-37); BILIRUBIN TOTAL 0.26 mg/dL (0.20-1.00); CALCIUM 8.7 mg/dL (8.5-10.1); CARBON DIOXIDE 30.4 mmol/L (21-32); CHLORIDE SERUM 105 mmol/L (98-107); CREATININE SERUM 0.5 mg/dL (0.6-1.0); GFR1 > 60 mL/min; GLUCOSE SERUM 84 mg/dL (74-106); POTASSIUM SERUM 4.2 mmol/L (3.5-5.1); SODIUM SERUM 142 mmol/L (136-145)
[2020-03-04 08:23] LABS: ALBUMIN 2.7 g/dL (3.4-5.0)
[2020-03-04 16:00] VITALS: BP 129/62
[2020-03-04] MEDS ORDERED: DEPAKOTE ER250 M1 PO (16:30)
[2020-03-04] MEDS ORDERED: CLEOCIN HCL300 MG PO (16:33)
[2020-03-04] MEDS ORDERED: PROBIOTIC1 EACH PO (16:34)
[2020-03-04 17:46] VITALS: BP 110/59
== END 2020-03-04 19:03 | disposition home or self-care (01) | DRG 53 ==
LOC: ED 16:12 → EDBD 16:12 → IC 20:19 → MU 02-26 12:21
PROVIDERS: Emergency Medicine; Hospitalist; ADMIT Internal Medicine; ATTEND Internal Medicine
PROC: 009U3ZX Drainage of Spinal Canal, Percutaneous Approach, Diagnostic (ICD-10-PCS; principal; 2020-03-03)
PROC: B01B1ZZ Fluoroscopy of Spinal Cord using Low Osmolar Contrast (ICD-10-PCS; 2020-03-03)
DX: G40.901 Epilepsy, unspecified, not intractable, with status epilepticus (principal); J96.01 Acute respiratory failure with hypoxia; Z20.822 Contact with and (suspected) exposure to COVID-19
CPT/HCPCS: 31500; 36600; 62272; 82962; G0378; J0133; J0696; J1650; J1953; J2060; J2250; J2270; J2405; J2704; J3370; J3490; J7030; J7060; U0003